=== PATIENT | male | born 1950 | race Caucasian/White ===

== ENCOUNTER → 2017-06-12 | Outpatient (CLI) | payer MEDICARE, MEDICAID ==
[~2017-06-12] MED LIST: ALBU8.5H IH; ASPI81TA86 PO; BLOO-1318 MC; BLOO-1337 MC; DAPA5TAB PO; FLUT1AER INH; FLUT1DIS28 IH; GLIM2TAB43 PO; GLIM4TAB50 PO; GLYB1TAB47 PO; LANC-1149 MC; LEVO50TA86 PO; LEVO75TA73 PO; LOVA40TA89 PO; METF-420 PO; OLAN20TA22 PO; OXYC-865 PO; OXYGENHOME INH; SAXA5TAB4 PO; SIMV-49 PO; SITA50TA6 PO; TAMS0.4C70 PO
[2017-06-12 09:34] LABS: PLATELET COUNT, AUTOMATED 140 K/uL (150-450)
[2017-06-12 09:39] LABS: LDL CHOLESTEROL 47 mg/dl
== END ==
LOC: LAB 09:12
PROVIDERS: ATTEND Internal Medicine
DX: Z12.5 Encounter for screening for malignant neoplasm of prostate (principal); E11.9 Type 2 diabetes mellitus without complications; E78.5 Hyperlipidemia, unspecified; N40.0 Benign prostatic hyperplasia without lower urinary tract symptoms; E03.9 Hypothyroidism, unspecified
CPT/HCPCS: 36415; 81001; 83036; 84443; 85025; G0103; 82040; 82247; 82310; 82374; 82435; 82465; 82565; 82947; 83718; 84075; 84132; 84153; 84155; 84295; 84450; 84460; 84478; 84520

== ENCOUNTER → 2017-08-09 | Outpatient (CLI) | payer MEDICARE, MEDICAID ==
[~2017-08-09] MED LIST changes: +BREX3TAB PO; +FLUT16SP19 NS
[2017-08-09 10:34] LABS: LDL CHOLESTEROL 42 mg/dl
== END ==
LOC: LAB 10:04
PROVIDERS: ATTEND Internal Medicine
DX: R94.6 Abnormal results of thyroid function studies (principal); E11.9 Type 2 diabetes mellitus without complications; E78.5 Hyperlipidemia, unspecified; E03.9 Hypothyroidism, unspecified
CPT/HCPCS: 36415; 82040; 82247; 82310; 82374; 82435; 82465; 82565; 82947; 83036; 83718; 84075; 84132; 84155; 84295; 84443; 84450; 84460; 84478; 84520

== ENCOUNTER 2017-10-11 23:36 | Emergency (ER) | payer MEDICARE, MEDICAID ==
[~2017-10-11 23:36] MED LIST changes: -METF-420 PO; +METF-421 PO
--- NOTE | 2017-10-11 23:43 | ER Report ---
History and Physical Time Seen By MD: 23:43 Hx. of Stated Complaint: LONG TERM CLEARANCE, ETOH HPI/ROS CHIEF COMPLAINT: alcohol intoxication, [facility]p clearance HISTORY OF PRESENT ILLNESS: This is a 67 year old male. He is here because of public intoxication, very intoxicated. He has no complaints. No concerns of injury. No pain. No shortness of breath. Allergies: Coded Allergies: No Known Drug Allergies (Unverified , 10/11/17) Home Meds Active Scripts Fluticasone Prop 50 Mcg Ns (FLONASE 50 MCG NS) 16 Gm [place].susp, 2 SPRAYS NS QDAY, #1 BOT 3 Refills Prov:NEW LEACH MD 07/11/17 Albuterol Sulfate 90 Mcg/Act (PROAIR HFA 90 MCG/ACT) 8.5 Gm Hfa.aer.ad, 2 PUFF IH Q4-6H, #1 INHALER 6 Refills Prov:NEW LEACH MD 06/11/17 Fluticasone/Vilanterol 100/25 Mcg/Inh (BREO ELLIPTA 100/25 MCG) 1 Each Aer.pow.ba, 1 INH INH QDAY, #1 INH 6 Refills Prov:NEW LEACH MD 06/11/17 Tamsulosin Hcl (TAMSULOSIN HCL) 0.4 Mg Cap.er.24h, 0.4 MG PO QHS, #30 CAP 5 Refills Prov:NEW LEACH MD 06/11/17 Saxagliptin Hcl (ONGLYZA) 5 Mg Tablet, 5 MG PO QDAY, #90 TAB 4 Refills Prov:NEW LEACH MD 06/11/17 Simvastatin (SIMVASTATIN) 20 Mg Tablet, 20 MG PO HS, #90 TAB 4 Refills Prov:NEW LEACH MD 06/11/17 Glimepiride (GLIMEPIRIDE) 4 Mg Tablet, 4 MG PO BID, #180 TAB 4 Refills Prov:NEW LEACH MD 06/11/17 Levothyroxine Sodium (LEVOTHYROXINE SODIUM) 50 Mcg Tablet, 50 MCG PO QDAY, #90 TAB 4 Refills Prov:NEW LEACH MD 06/11/17 Metformin Hcl (METFORMIN HCL) 1,000 Mg Tablet, 1 TAB PO BID, #180 TAB 4 Refills Prov:NEW LEACH MD 06/11/17 Blood Sugar Diagnostic (ONE TOUCH ULTRA TEST STRIPS) 1 Each Strip, 1 EACH MC DAILY, #50 STRIP 5 Refills Prov:NEW LEACH MD 03/06/17 Oxygen (OXYGEN) Inha, 2 L INH QDAY, #2 L Prov:NEW LEACH MD 08/19/15 Reported Medications Brexpiprazole (Rexulti) 3 Mg Tablet, 1 TAB PO DAILY 08/09/17 Aspirin (ASPIRIN EC) 81 Mg Tablet., 81 MG PO QDAY, TAB 12/31/16 Unable To Obtain Past Medical: Unable to Obtain/Update Reviewed Nurses Notes: Yes Smoking Status: Former Smoker Constitutional Vital Sign - Last 24 Hours 10/11/17 10/11/17 10/11/17 10/11/17 23:36 23:37 23:46 23:57 Temp 97.5 Pulse 97 96 Resp 16 B/P (MAP) 88/50 117/73 (88) 121/79 (93) Pulse Ox 88 88 O2 Delivery Room Air Physical Exam General Appearance: Alert, intoxicated, but otherwise cooperative. Sitting in chair with arms behind him in handcuffs. Eyes: Pupils equal and round, has some scleral injection. ENT: Normal oral mucosa. Moist mucous membranes. Neck: Neck is supple and non tender. Respiratory: Chest is non tender, lungs are clear to auscultation. Cardiac: regular rate and rhythm Gastrointestinal: Abdomen is soft and non tender, no masses, bowel sounds normal. Musculoskeletal: Extremities have full range of motion. Skin: No rashes or lesions. DIFFERENTIAL DIAGNOSIS: After history and physical exam differential diagnosis was considered for alcohol intoxication. Initial blood pressure was a little low but this was taken with his arms behind him in handcuffs. When we had him relax into a seated position with his hands in front of them, blood pressure was much better. He is breathing easily, oxygen saturations are dropping just a little bit into the upper 80s at times. Medical Decision Making ED Course/Re-evaluation ED Course Repeat blood pressures are stable. Patient is cleared to go to the [facility] with the [place] [employer]. Decision to Disposition Date: Oct 11, 2017 Decision to Disposition Time: 23:52 Depart Departure Latest Vital Signs Vital Signs Date Time Temp Pulse Resp B/P (MAP) Pulse Ox O2 Delivery O2 Flow Rate FiO2 10/11/17 23:57 121/79 (93) 10/11/17 23:37 97.5 96 16 88 Room Air Impression: Primary Impression: Alcohol intoxication Condition: Condition Unchanged Disposition: [facility] TO LONG TERM/CORRECTIONAL F Referrals: NEW LEACH MD (PCP) Patient Instructions: Alcohol Intoxication (ED) Problem Qualifiers Primary Impression: Alcohol intoxication Complication of substance-induced condition: uncomplicated Qualified Codes: F10.920 - Alcohol use, unspecified with intoxication, uncomplicated JORGE MARTINEZ MD Oct 11, 2017 23:43
[2017-10-11 23:57] VITALS: BP 121/79
== END 2017-10-12 00:08 ==
LOC: ER 23:47
DX: F10.920 Alcohol use, unspecified with intoxication, uncomplicated (principal)
CPT/HCPCS: 99281

== ENCOUNTER → 2017-11-07 | Outpatient (CLI) | payer MEDICARE ==
[2017-11-07 08:52] LABS: PLATELET COUNT, AUTOMATED 178 K/uL (150-450)
[2017-11-07 09:08] LABS: LDL CHOLESTEROL 46 mg/dl
== END ==
LOC: LAB 07:05
PROVIDERS: ATTEND Internal Medicine
DX: E03.9 Hypothyroidism, unspecified (principal); E78.5 Hyperlipidemia, unspecified; E11.9 Type 2 diabetes mellitus without complications
CPT/HCPCS: 36415; 81001; 82040; 82247; 82310; 82374; 82435; 82465; 82565; 82947; 83036; 83718; 84075; 84132; 84155; 84295; 84443; 84450; 84460; 84478; 84520; 85025

== ENCOUNTER 2018-01-06 17:23 | Emergency (ER) | payer MEDICARE, MEDICAID ==
[~2018-01-06 17:23] MED LIST changes: -METF-421 PO; +METF-452 PO
[2018-01-06 17:24] VITALS: BP 156/101
--- NOTE | 2018-01-06 17:29 | ER Report ---
History and Physical Time Seen By MD: 17:29 Hx. of Stated Complaint: UNABLE TO UNDERSTAND WHAT PT IS SAYING, YELLING, SKILLED NURSING CLEARANCE HPI/ROS CHIEF COMPLAINT: [facility] clearance HISTORY OF PRESENT ILLNESS: The patient was admitted to a room via [facility], for alcohol intoxication and needing clearance for the intermediate center. According to the police department the patient was downtown, intoxicated and pushing people. Subsequently the patient was placed in their custody, brought to the emergency department to be sure that he was well enough to go to senior living. Constanza valle arrives in handcuffs, sitting in the wheelchair, yelling and screaming at staff, the police officers but he is cooperative. He has not fallen. Denies chest pain. No nausea or vomiting. No illnesses. It is difficult to understand the patient as he is not have his dentures in at this time and is intoxicated. Patient states he has been drinking but he doesn't state what and how much. Denies wanting to harm himself or others. REVIEW OF SYSTEMS: Constitutional: No fever, no chills. Eyes: No discharge. ENT: No sore throat. Cardiovascular: No chest pain, no palpitations. Respiratory: No cough, no shortness of breath. Gastrointestinal: No abdominal pain, no vomiting. Genitourinary: No hematuria. Musculoskeletal: No back pain. Skin: No rashes. Neurological: As above. Psych: as above. Allergies: Coded Allergies: No Known Drug Allergies (Unverified , 10/11/17) Home Meds Active Scripts Tamsulosin Hcl (TAMSULOSIN HCL) 0.4 Mg Cap.er.24h, 0.4 MG PO QHS, #90 CAP 1 Refi ll Prov:NEW LEACH MD 12/27/17 Fluticasone Prop 50 Mcg Ns (FLONASE 50 MCG NS) 16 Gm [place].susp, 2 SPRAYS NS QDAY, #1 BOT 3 Refills Prov:NEW LEACH MD 07/11/17 Albuterol Sulfate 90 Mcg/Act (PROAIR HFA 90 MCG/ACT) 8.5 Gm Hfa.aer.ad, 2 PUFF IH Q4-6H, #1 INHALER 6 Refills Prov:NEW LEACH MD 06/11/17 Fluticasone/Vilanterol 100/25 Mcg/Inh (BREO ELLIPTA 100/25 MCG) 1 Each Aer.pow.ba, 1 INH INH QDAY, #1 INH 6 Refills Prov:NEW LEACH MD 06/11/17 Saxagliptin Hcl (ONGLYZA) 5 Mg Tablet, 5 MG PO QDAY, #90 TAB 4 Refills Prov:NEW LEACH MD 06/11/17 Simvastatin (SIMVASTATIN) 20 Mg Tablet, 20 MG PO HS, #90 TAB 4 Refills Prov:NEW LEACH MD 06/11/17 Glimepiride (GLIMEPIRIDE) 4 Mg Tablet, 4 MG PO BID, #180 TAB 4 Refills Prov:NEW LEACH MD 06/11/17 Levothyroxine Sodium (LEVOTHYROXINE SODIUM) 50 Mcg Tablet, 50 MCG PO QDAY, #90 TAB 4 Refills Prov:NEW LEACH MD 06/11/17 Metformin Hcl (METFORMIN HCL) 1,000 Mg Tablet, 1 TAB PO BID, #180 TAB 4 Refills Prov:NEW LEACH MD 06/11/17 Blood Sugar Diagnostic (ONE TOUCH ULTRA TEST STRIPS) 1 Each Strip, 1 EACH MC DAILY, #50 STRIP 5 Refills Prov:NEW LEACH MD 03/06/17 Oxygen (OXYGEN) Inha, 2 L INH QDAY, #2 L Prov:NEW LEACH MD 08/19/15 Reported Medications Brexpiprazole (Rexulti) 3 Mg Tablet, 1 TAB PO DAILY 08/09/17 Aspirin (ASPIRIN EC) 81 Mg Tablet.dr, 81 MG PO QDAY, TAB 12/31/16 Past Medical/Surgical History The patient has a past medical and surgical history of cardiac disorders, hypercholesterolemia, diabetes, depression, alcohol abuse. Schizophrenia. Reviewed Nurses Notes: Yes Smoking Status: Former Smoker Hx Alcohol Use: Yes Constitutional Vital Sign - Last 24 Hours 01/06/18 17:24 Temp 98.4 Pulse 121 Resp 16 B/P (MAP) 156/101 Pulse Ox 90 O2 Delivery Room Air Physical Exam General Appearance: The patient is alert, has no immediate need for airway protection and no signs of toxicity, slurring his words, yelling has a very strong odor of alcohol. Eyes: Pupils equal and round no pallor or injection. ENT, Mouth: Mucous membranes are dry. Respiratory: There are no retractions, lungs are clear to auscultation. Cardiovascular: Regular rate and rhythm. Gastrointestinal: Abdomen is soft and non tender, no masses, bowel sounds normal. Neurological: Alert and oriented 3. Moving all extremities. Following commands. No focal neuro deficits. Skin: Warm and dry, no rashes. Musculoskeletal: Neck is supple non tender. Extremities are nontender, nonswollen and have full range of motion. DIFFERENTIAL DIAGNOSIS: After history and physical exam differential diagnosis was considered for alcohol intoxication, alcohol withdrawal and delirium tremens.. Medical Decision Making ED Course/Re-evaluation ED Course The patient was admitted to a room via [facility], a history of physical were obtained. Differential diagnoses were considered. After examination of the patient, it was determined the patient's was well enough to be discharged from the emergency department and go directly to senior living. Patient denied pain, no shortness of breath. No nausea or vomiting. No complaints at all . No recent illnesses. Did not fall. No head injuries. Patient was escorted out to the garage placed in the police car and taken to the intermediate center. Decision to Disposition Date: Jan 06, 2018 Decision to Disposition Time: 17:34 Depart Departure Latest Vital Signs Vital Signs Date Time Temp Pulse Resp B/P (MAP) Pulse Ox O2 Delivery O2 Flow Rate FiO2 01/06/18 17:24 98.4 121 16 156/101 90 Room Air Impression: Primary Impression: Alcohol intoxication Condition: Improved Disposition: HOME OR SELF-CARE Referrals: NEW LEACH MD (PCP) Patient Instructions: Abuse of Alcohol (ED), Alcohol Dependence (GEN) Additional Instructions: You are clear to go to [facility]. Drink plenty of water. Follow-up with your primary care provider. Return to the ER for any other concerns or worsening symptoms. Problem Qualifiers Primary Impression: Alcohol intoxication Complication of substance-induced condition: with unspecified complication Qualified Codes: F10.929 - Alcohol use, unspecified with intoxication, unspecified GORDO WATKINS [employer] Jan 06, 2018 17:29
== END 2018-01-06 17:45 ==
LOC: ER 17:30
DX: F10.929 Alcohol use, unspecified with intoxication, unspecified (principal)
CPT/HCPCS: 99281

== ENCOUNTER 2018-01-08 13:35 | Emergency (ER) | payer MEDICARE, MEDICAID ==
[2018-01-08 13:40] VITALS: BP 159/99
[2018-01-08] MEDS ORDERED: BREX4TAB PO (13:53)
--- NOTE | 2018-01-08 13:58 | ER Report ---
History and Physical Time Seen By MD: 13:50 Hx. of Stated Complaint: PATIENT STATES HE WAS BROUGHT UP HERE BY POLICE AFTER THEY WERE CONTACTED BY [employer]. PATIENT STATES THAT THE POLICE THINK THAT HE WAS WANTING TO HARM PEOPLE. HPI/ROS CHIEF COMPLAINT: Depression agitation HISTORY OF PRESENT ILLNESS: 67-year-old male long history of alcohol abuse diagnosis schizophrenia medication was brought in by police after having verbal confrontations with the landlord and staff of the apartments where he lives. Patient states that there being aggressive towards and threatening to put objects in his rectum he states that he does drink and he has had 3 arrests in the last couple months due to altercations with his landlord and the folks over there patient denies being suicidal homicidal patient denies having suicidal thoughts or ideation patient denies hearing voices or having schizophrenic type symptoms patient has no physical complaints at this time brought here for an evaluation REVIEW OF SYSTEMS: Respiratory: No cough, no dyspnea. Cardiovascular: No chest pain, no palpitations. Gastrointestinal: No vomiting, no abdominal pain. Musculoskeletal: No back pain. Remainder of the 14 system rev: Yes Allergies: Coded Allergies: No Known Drug Allergies (Unverified , 01/08/18) Home Meds Active Scripts Tamsulosin Hcl (TAMSULOSIN HCL) 0.4 Mg Cap.er.24h, 0.4 MG PO QHS, #90 CAP 1 Refill Prov:NEW LEACH MD 12/27/17 Albuterol Sulfate 90 Mcg/Act (PROAIR HFA 90 MCG/ACT) 8.5 Gm Hfa.aer.ad, 2 PUFF IH Q4-6H, #1 INHALER 6 Refills Prov:NEW LEACH MD 06/11/17 Saxagliptin Hcl (ONGLYZA) 5 Mg Tablet, 5 MG PO QDAY, #90 TAB 4 Refills Prov:NWE LEACH MD 06/11/17 Simvastatin (SIMVASTATIN) 20 Mg Tablet, 20 MG PO HS, #90 TAB 4 Refills Prov:NEW LEACH MD 06/11/17 Glimepiride (GLIMEPIRIDE) 4 Mg Tablet, 4 MG PO BID, #180 TAB 4 Refills Prov:NEW LEACH MD 06/11/17 Levothyroxine Sodium (LEVOTHYROXINE SODIUM) 50 Mcg Tablet, 50 MCG PO QDAY, #90 TAB 4 Refills Prov:NEW LEACH MD 06/11/17 Metformin Hcl (METFORMIN HCL) 1,000 Mg Tablet, 1 TAB PO BID, #180 TAB 4 Refills Prov:NEW LEACH MD 06/11/17 Blood Sugar Diagnostic (ONE TOUCH ULTRA TEST STRIPS) 1 Each Strip, 1 EACH MC DAILY, #50 STRIP 5 Refills Prov:ENW LEACH MD 03/06/17 Reported Medications Brexpiprazole (Rexulti) 4 Mg Tablet, 1 TAB PO QDAY 01/08/18 Aspirin (ASPIRIN EC) 81 Mg Tablet.dr, 81 MG PO QDAY, TAB 12/31/16 Discontinued Reported Medications Brexpiprazole (Rexulti) 3 Mg Tablet, 1 TAB PO DAILY 08/09/17 Discontinued Scripts Fluticasone Prop 50 Mcg Ns (FLONASE 50 MCG NS) 16 Gm [place].susp, 2 SPRAYS NS QDAY, #1 BOT 3 Refills Prov:NEW LEACH MD 07/11/17 Fluticasone/Vilanterol 100/25 Mcg/Inh (BREO ELLIPTA 100/25 MCG) 1 Each Aer.pow.ba, 1 INH INH QDAY, #1 INH 6 Refills Prov:NEW LEACH MD 06/11/17 Oxygen (OXYGEN) Inha, 2 L INH QDAY, #2 L Prov:NEW LEACH MD 08/19/15 Reviewed Nurses Notes: Yes Old Medical Records Reviewed: Yes Smoking Status: Former Smoker Hx Alcohol Use: Yes Constitutional Vital Sign - Last 24 Hours 01/08/18 13:40 Pulse 91 Resp 20 B/P (MAP) 159/99 Pulse Ox 92 O2 Delivery Room Air Physical Exam General Appearance: The patient is alert, has no immediate need for airway p rotection and no current signs of toxicity. [ ] Eyes: Pupils equal and round no injection. Respiratory: Chest is non tender, lungs are clear to auscultation. Cardiac: regular rate and rhythm [ ] Gastrointestinal: Abdomen is soft and non tender, no masses, bowel sounds normal. Musculoskeletal: Neck: Neck is supple and non tender. Extremities have full range of motion and are non tender. Skin: No rashes or lesions. [ ] DIFFERENTIAL DIAGNOSIS: After history and physical exam differential diagnosis was considered for schizophrenia paranoid schizophrenia delusions alcohol abuse Medical Decision Making Data Points Result Diagram: 01/08/18 1404 Laboratory Hematology Test 01/08/18 13:42 01/08/18 14:04 Urine Color Yellow Urine Clarity Clear Urine pH 5.0 pH (4.8-9.5) Urine Specific [place] 1.029 Urine Protein 100 mg/dL (NEGATIVE) Urine Glucose (UA) 150 mg/dL (NEGATIVE) Urine Ketones 20 mg/dL (NEGATIVE) Urine Blood Small (NEGATIVE) Urine Nitrite Negative (NEGATIVE) Urine Bilirubin Negative (NEGATIVE) Urine Urobilinogen 4.0 mg/dL (0.2-1.9) Urine Leukocyte Esterase Negative (NEGATIVE) Urine RBC <1 /HPF (0-2/HPF) Urine WBC 3 /HPF (0-5/HPF) Urine Squamous Epithelial Cells Moderate /LPF (</=FEW) Urine Bacteria Negative /HPF (NONE-FEW) Urine Hyaline Casts Many /LPF (NONE-FEW) Urine Mucus Few /HPF (NONE-FEW) Urine Opiates Screen Negative Urine Barbiturates Screen Negative Ur Tricyclic Antidepressants Screen Negative Urine Phencyclidine Screen Negative Urine Amphetamines Screen Negative Urine Benzodiazepines Screen Negative Urine Cocaine Screen Negative Urine Cannabinoids Screen Positive Red Blood Count 6.59 M/uL (4.00-5.60) Mean Corpuscular Volume 82.8 fL (80.0-96.0) Mean Corpuscular Hemoglobin 26.7 pg (26.0-33.0) Mean Corpuscular Hemoglobin Concent 32.3 g/dL (32.0-36.0) Red Cell Distribution Width 16.7 % (11.5-14.5) Mean Platelet Volume 9.8 fL (7.2-11.1) Neutrophils (%) (Auto) 74.8 % (39.4-72.5) Lymphocytes (%) (Auto) 13.9 % (17.6-49.6) Monocytes (%) (Auto) 10.4 % (4.1-12.4) Eosinophils (%) (Auto) 0.3 % (0.4-6.7) Basophils (%) (Auto) 0.6 % (0.3-1.4) Nucleated RBC Relative Count (auto) 0.1 /100WBC Neutrophils # (Auto) 8.6 K/uL (2.0-7.4) Lymphocytes # (Auto) 1.6 K/uL (1.3-3.6) Monocytes # (Auto) 1.2 K/uL (0.3-1.0) Eosinophils # (Auto) 0.0 K/uL (0.0-0.5) Basophils # (Auto) 0.1 K/uL (0.0-0.1) Nucleated RBC Absolute Count (auto) 0.01 K/uL Chemistry Test 01/08/18 13:42 01/08/18 14:04 Urine Color Yellow Urine Clarity Clear Urine pH 5.0 pH (4.8-9.5) Urine Specific [place] 1.029 Urine Protein 100 mg/dL (NEGATIVE) Urine Glucose (UA) 150 mg/dL (NEGATIVE) Urine Ketones 20 mg/dL (NEGATIVE) Urine Blood Small (NEGATIVE) Urine Nitrite Negative (NEGATIVE) Urine Bilirubin Negative (NEGATIVE) Urine Urobilinogen 4.0 mg/dL (0.2-1.9) Urine Leukocyte Esterase Negative (NEGATIVE) Urine RBC <1 /HPF (0-2/HPF) Urine WBC 3 /HPF (0-5/HPF) Urine Squamous Epithelial Cells Moderate /LPF (</=FEW) Urine Bacteria Negative /HPF (NONE-FEW) Urine Hyaline Casts Many /LPF (NONE-FEW) Urine Mucus Few /HPF (NONE-FEW) Urine Opiates Screen Negative Urine Barbiturates Screen Negative Ur Tricyclic Antidepressants Screen Negative Urine Phencyclidine Screen Negative Urine Amphetamines Screen Negative Urine Benzodiazepines Screen Negative Urine Cocaine Screen Negative Urine Cannabinoids Screen Positive White Blood Count 11.5 k/uL (4.5-11.0) Red Blood Count 6.59 M/uL (4.00-5.60) Hemoglobin 17.6 g/dL (14.0-18.0) Hematocrit 54.6 % (42.0-52.0) Mean Corpuscular Volume 82.8 fL (80.0-96.0) Mean Corpuscular Hemoglobin 26.7 pg (26.0-33.0) Mean Corpuscular Hemoglobin Concent 32.3 g/dL (32.0-36.0) Red Cell Distribution Width 16.7 % (11.5-14.5) Platelet Count 133 K/uL (150-450) Mean Platelet Volume 9.8 fL (7.2-11.1) Neutrophils (%) (Auto) 74.8 % (39.4-72.5) Lymphocytes (%) (Auto) 13.9 % (17.6-49.6) Monocytes (%) (Auto) 10.4 % (4.1-12.4) Eosinophils (%) (Auto) 0.3 % (0.4-6.7) Basophils (%) (Auto) 0.6 % (0.3-1.4) Nucleated RBC Relative Count (auto) 0.1 /100WBC Neutrophils # (Auto) 8.6 K/uL (2.0-7.4) Lymphocytes # (Auto) 1.6 K/uL (1.3-3.6) Monocytes # (Auto) 1.2 K/uL (0.3-1.0) Eosinophils # (Auto) 0.0 K/uL (0.0-0.5) Basophils # (Auto) 0.1 K/uL (0.0-0.1) Nucleated RBC Absolute Count (auto) 0.01 K/uL Toxicology Test 01/08/18 13:42 01/08/18 14:04 Urine Opiates Screen Negative Urine Barbiturates Screen Negative Ur Tricyclic Antidepressants Screen Negative Urine Phencyclidine Screen Negative Urine Amphetamines Screen Negative Urine Benzodiazepines Screen Negative Urine Cocaine Screen Negative Urine Cannabinoids Screen Positive Urinalysis Test 01/08/18 13:42 Urine Color Yellow Urine Clarity Clear Urine pH 5.0 pH (4.8-9.5) Urine Specific [place] 1.029 Urine Protein 100 mg/dL (NEGATIVE) Urine Glucose (UA) 150 mg/dL (NEGATIVE) Urine Ketones 20 mg/dL (NEGATIVE) Urine Blood Small (NEGATIVE) Urine Nitrite Negative (NEGATIVE) Urine Bilirubin Negative (NEGATIVE) Urine Urobilinogen 4.0 mg/dL (0.2-1.9) Urine Leukocyte Esterase Negative (NEGATIVE) Urine RBC <1 /HPF (0-2/HPF) Urine WBC 3 /HPF (0-5/HPF) Urine Squamous Epithelial Cells Moderate /LPF (</=FEW) Urine Bacteria Negative /HPF (NONE-FEW) Urine Hyaline Casts Many /LPF (NONE-FEW) Urine Mucus Few /HPF (NONE-FEW) ED Course/Re-evaluation ED Course 7-year-old male brought in by police for evaluation for being agitated from an altercation with his landlord [employer] evaluated finds he is not suicidal homicidal or gravely disabled he wants to leave medically cleared we'll be discharging Decision to Disposition Date: Jan 08, 2018 Decision to Disposition Time: 14:25 Depart Departure Latest Vital Signs Vital Signs Date Time Temp Pulse Resp B/P (MAP) Pulse Ox O2 Delivery O2 Flow Rate FiO2 01/08/18 13:40 91 20 159/99 92 Room Air Impression: Primary Impression: Agitation Condition: Improved Disposition: HOME OR SELF-CARE Referrals: NEW LEACH MD (PCP) Patient Instructions: Anxiety (DC) PIERRE SILVA MD Jan 08, 2018 13:58
[2018-01-08 14:17] LABS: PLATELET COUNT, AUTOMATED 133 K/uL (150-450)
== END 2018-01-08 14:49 | disposition home or self-care (01) ==
LOC: ER 13:42
DX: F32.9 Major depressive disorder, single episode, unspecified (principal); R45.1 Restlessness and agitation
CPT/HCPCS: 36415; 80305; 81001; 83735; 84443; 85025; 99281; G0480; 80320; 80329; 82040; 82247; 82310; 82374; 82435; 82565; 82947; 84075; 84132; 84155; 84295; 84450; 84460; 84520

== ENCOUNTER → 2018-07-17 | Outpatient (CLI) | payer MEDICARE, MEDICAID ==
[~2018-07-17] MED LIST changes: +BREX4TAB PO
[2018-07-17 09:24] LABS: LDL CHOLESTEROL 63 mg/dl
== END ==
LOC: LAB 08:31
PROVIDERS: ATTEND Nurse Practitioner
DX: E11.9 Type 2 diabetes mellitus without complications (principal)
CPT/HCPCS: 36415; 82040; 82247; 82310; 82374; 82435; 82465; 82565; 82947; 83718; 84075; 84132; 84155; 84295; 84443; 84450; 84460; 84478; 84520

== ENCOUNTER → 2018-09-17 | Outpatient (CLI) | payer MEDICARE, MEDICAID ==
[2018-09-17 13:34] LABS: PLATELET COUNT, AUTOMATED 235 K/uL (150-450)
== END ==
LOC: LAB 13:04
PROVIDERS: ATTEND Nurse Practitioner
DX: E11.9 Type 2 diabetes mellitus without complications (principal)
CPT/HCPCS: 36415; 85025

== ENCOUNTER → 2018-10-30 | Outpatient (CLI) | payer MEDICARE, MEDICAID ==
[~2018-10-30] MED LIST changes: -OLAN20TA22 PO; +OLAN20TA6 PO
[2018-10-30 10:40] LABS: PLATELET COUNT, AUTOMATED 157 K/uL (150-450)
== END ==
LOC: LAB 10:28
PROVIDERS: ATTEND Nurse Practitioner
DX: E11.9 Type 2 diabetes mellitus without complications (principal); R03.0 Elevated blood-pressure reading, without diagnosis of hypertension
CPT/HCPCS: 36415; 82040; 82247; 82310; 82374; 82435; 82565; 82947; 84075; 84132; 84155; 84295; 84439; 84443; 84450; 84460; 84520; 85025